=== PATIENT | male | born 1980 | race Two or more races ===

== ENCOUNTER 2016-12-14 03:51 | Emergency (ER) | payer OTHER ==
--- NOTE | 2016-12-14 04:50 | NUR ---
PATIENT WAS CALLED SEVERAL TIMES IN 1HR. PATIENT WAS NOT PRESENT
== END 2016-12-14 04:53 | disposition left against medical advice (07) ==
LOC: ER 04:02
DX: Z53.21 Procedure and treatment not carried out due to patient leaving prior to being seen by health care provider (principal)

== ENCOUNTER 2018-12-22 21:00 | Emergency (ER) | payer OTHER ==
[~2018-12-22] VITALS: Ht 170.2 cm; Wt 82.1 kg
[2018-12-22] MEDS ORDERED: ATOR40TA PO (21:19)
[2018-12-22] MEDS ORDERED: LEVO25TA9 PO (21:19)
[2018-12-22] MEDS ORDERED: ERGO500040 PO (21:19)
[2018-12-22] MEDS ORDERED: KETOROLAC TROMETHAMINE 30 MG INJ IM ONE (21:30)
[2018-12-22] MEDS ORDERED: KETOROLAC TROMETHAMINE 30 MG INJ ONE (21:42)
[2018-12-22 21:43] LABS: BASOPHILS % (AUTO) 0.1 % (0.0-2.0); EOSINOPHILS # (AUTO) 0.1 K/uL (0.0-0.7); EOSINOPHILS % (AUTO) 1.7 % (0.0-7.0); HEMATOCRIT 40.1 % (36.7-47.1); HEMOGLOBIN 13.4 g/dL (12.5-16.3); LYMPHOCYTES # (AUTO) 2.6 K/uL (20.0-40.0); LYMPHOCYTES % (AUTO) 32.5 % (20.5-51.5); MEAN CORPUSCULAR HEMOGLOBIN 28.4 uug (23.8-33.4); MEAN CORPUSCULAR HGB CONC 33 g/dL (32.5-36.3); MONOCYTES # (AUTO) 0.5 K/uL (2.0-10.0); MONOCYTES % (AUTO) 6.2 % (0.0-11.0); NEUTROPHILS # (AUTO) 4.8 K/uL (1.8-8.9); NEUTROPHILS % (AUTO) 59.5 % (38.5-71.5); PLATELET COUNT (AUTO) 248 K/uL (152-348); RED BLOOD CELL COUNT(AUTO) 4.72 MIL/uL (4.06-5.63)
[2018-12-22 21:59] LABS: BILIRUBIN,DIRECT 0.1 mg/dL (0.0-0.2); BILIRUBIN,TOTAL 0.4 mg/dL (0.2-1.0); TOTAL PROTEIN, SERUM 7.5 g/dL (6.4-8.2)
[2018-12-22 22:46] LABS: *BILIRUBIN,URIN NEGATIVE (NEGATIVE); *BLOOD, URINE NEGATIVE (NEGATIVE); *CLARITY,URINE CLEAR (CLEAR); *COLOR,URINE YELLOW (YELLOW); *KETONES,URINE NEGATIVE (NEGATIVE); *UROBILINOGEN,URINE 0.2 E.U./dl (NORMAL); LEUKOCYTE ESTERASE ,URINE NEGATIVE (NEGATIVE); NITRITE, URINE NEGATIVE (NEGATIVE); UGLUCOSE NEGATIVE (NEGATIVE)
[2018-12-22 23:05] VITALS: BP 125/82
--- NOTE | 2018-12-22 23:07 | NUR ---
Patient discharged to home in stable conditon. Written and verbal after care instructions given. Patient verbalizes understanding of instructions. WALKED OUT OF ER WITH NO DISTRESS NOTED
[2018-12-22 23:12] LABS: BACTERIA,URINE NONE SEEN /HPF (NONE SEEN); MUCUS,URINE MANY /LPF (0-FEW); RBC,URINE 0-3 /HPF (0-3); SQUAMOUS EPITHELIAL CELL,UR FEW /HPF (NONE SEEN); WBC,URINE 0-3 /HPF (0-3)
== END 2018-12-22 23:10 | disposition home or self-care (01) ==
LOC: ER 21:00
DX: R10.9 Unspecified abdominal pain (principal); Z79.899 Other long term (current) drug therapy
CPT/HCPCS: 36415; 80048; 80076; 81001; 83690; 85025; 96372; 99283; J1885; A4663

== ENCOUNTER 2020-09-27 00:28 | Emergency (ER) | payer OTHER ==
[~2020-09-27] VITALS: Ht 170.2 cm; Wt 86.2 kg
[~2020-09-27 00:28] MED LIST: ATOR40TA PO; ERGO500040 PO; LEVO25TA9 PO
--- NOTE | 2020-09-27 00:47 | NUR ---
Dr. Potter at bedside for MSE.
[2020-09-27] MEDS ORDERED: CYCLOBENZAPRINE HCL 10 MG TABLET PO ONE (01:00)
[2020-09-27] MEDS ORDERED: LIDOCAINE 5% PATCH TD ONE ×2 (01:00→01:08)
[2020-09-27] MEDS ORDERED: DEXAMETHASONE SOD PHOSPHATE 4 MG INJ IM ONE (01:00)
[2020-09-27] MEDS ORDERED: ACETAMINOPHEN 325 MG TABLET PO ONE (01:00)
[2020-09-27] MEDS ORDERED: CYCLOBENZAPRINE HCL 10 MG TABLET ONE (01:06)
[2020-09-27] MEDS ORDERED: DEXAMETHASONE SOD PHOSPHATE 10 MG INJ ONE (01:06)
[2020-09-27] MEDS ORDERED: ACETAMINOPHEN ES 500 MG TABLET ONE (01:07)
--- NOTE | 2020-09-27 01:10 | NUR ---
Pt refused CT, states afraid of cancer, would like a referral to a orthopedic doctor instead.
[2020-09-27] MEDS ORDERED: KETOROLAC TROMETHAMINE 30 MG INJ IM ONE (02:15)
--- NOTE | 2020-09-27 02:16 | NUR ---
Xray at bedside.
[2020-09-27] MEDS ORDERED: KETOROLAC TROMETHAMINE 30 MG INJ ONE (02:19)
[2020-09-27] MEDS ORDERED: MORPHINE SULFATE 4 MG/1 ML DISP.SYRIN IM ONE (03:15)
[2020-09-27] MEDS ORDERED: MORPHINE SULFATE 4 MG/1 ML DISP.SYRIN ONE (03:20)
--- NOTE | 2020-09-27 03:25 | NUR ---
Pt out of ER for CT.
--- NOTE | 2020-09-27 03:34 | NUR ---
Pt back to ER from CT.
[2020-09-27 04:01] VITALS: BP 135/95
--- NOTE | 2020-09-27 04:01 | NUR ---
Patient discharged to home in stable condition. Written and verbal after care instructions given. Patient verbalizes understanding of instructions. Stressed follow up or return to ER for worsening s/s. Patient out of ER with steady gait, no acute signs of distress, VSS, all belongings taken, provided with copies of xray and CT results, and CD of images provided.
== END 2020-09-27 04:02 | disposition home or self-care (01) ==
LOC: ER 00:38
DX: S32.2XXA Fracture of coccyx, initial encounter for closed fracture (principal); S13.4XXA Sprain of ligaments of cervical spine, initial encounter; V49.40XA Driver injured in collision with unspecified motor vehicles in traffic accident, initial encounter; Y92.411 Interstate highway as the place of occurrence of the external cause; E78.5 Hyperlipidemia, unspecified; Z79.899 Other long term (current) drug therapy; K57.30 Diverticulosis of large intestine without perforation or abscess without bleeding; R03.0 Elevated blood-pressure reading, without diagnosis of hypertension
CPT/HCPCS: 72192; 72220; 96372 ×2; 99284; J1100; J1885; J2270; A4663; A9150